=== PATIENT | male | born 1980 | race Caucasian/White ===

== ENCOUNTER 2018-12-29 21:06 | Emergency (ER) | payer OTHER ==
[~2018-12-29] VITALS: Ht 177.8 cm; Wt 198.0 kg
[2018-12-29] MEDS ORDERED: Amoxicillin500 MG PO (22:03)
== END 2018-12-29 22:34 | disposition home or self-care (01) ==
LOC: ER 21:06
DX: K04.7 Periapical abscess without sinus (principal)
CPT/HCPCS: 99283